=== PATIENT | male | born 2000 | race Caucasian/White ===

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

== ENCOUNTER 2021-03-16 08:08 | Emergency (ER) | payer SELFPAY ==
[~2021-03-16] VITALS: Ht 175.3 cm; Wt 71.5 kg
--- NOTE | 2021-03-16 09:08 | NUR ---
order caller: Pt ambulatory to room from lobby at this time.
[2021-03-16 09:16] VITALS: BP 140/81
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
--- NOTE | 2021-03-16 10:32 | NUR ---
PT STATING "I JUST WANT TO GO HOME, I DON'T WANT TO BE HERE ANYMORE." PT VERBALIZED UNDERSTANDING OF AMA AND SIGNED AMA FORM. PT AMBULATED STEADILY TO DISCHARGE DESK WITH FAMILY MEMBERS.
== END 2021-03-16 10:38 | disposition left against medical advice (07) ==
LOC: ED 10:32
DX: R07.89 Other chest pain (principal); T76.21XA Adult sexual abuse, suspected, initial encounter
CPT/HCPCS: 71045; 93005; 99283